=== PATIENT | male | born 1980 | race Caucasian/White ===

== ENCOUNTER → 2019-03-03 | Outpatient (CLI) | payer BC ==
--- NOTE | 2019-03-03 16:16 | XR ---
EXAMINATION TYPE: XR chest 2V DATE OF EXAM: 03/03/2019 COMPARISON: NONE HISTORY: Cough TECHNIQUE: Frontal and lateral views of the chest are obtained. FINDINGS: There is no focal air space opacity, pleural effusion, or pneumothorax seen. The cardiac silhouette size is within normal limits. Bronchial wall thickening noted. The osseous structures are intact. IMPRESSION: Correlate for bronchitis, reactive airways disease. Follow-up as indicated.
== END | disposition home or self-care (01) ==
LOC: RADXRYALE 14:46
PROVIDERS: ATTEND Physician Assistant Medical
DX: R05 Cough (principal)
CPT/HCPCS: 71046

== ENCOUNTER → 2019-04-28 | Outpatient (CLI) | payer BC ==
--- NOTE | 2019-04-28 14:02 | EST ---
EXERCISE STRESS AGE: 39 SEX: M HT: 6'1" WT: 200 PROTOCOL: Kwame Stress Test STAGE: IV DURATION OF EXERCISE: 11:00 HEART RATE REST: 92 BLOOD PRESSURE REST: 143/91 MAXIMUM HEART RATE ACHIEVED: 171 MAXIMUM BLOOD PRESSURE: 185/86 85% MPHR: 156 100% MPHR: 183 METS: 12.1 INDICATIONS: Chest pain. CLINICAL INFORMATION: STRESS DATA: Heart rate 92, blood pressure is 143/91 mmHg. Baseline EKG showed sinus mechanism. The patient exercised on the treadmill according to Kwame protocol for a total of 11 minutes and achieved 12.1 METS with max heart rate was 171, which is about 93% of maximum predicted heart rate. Maximum blood pressure was 185/86 mmHg. Clinically, the patient did not have any symptoms of chest pain or discomfort and the EKG did not show any significant ST or T-wave abnormalities concerning for ischemia. CONCLUSION: 1. Excellent exercise tolerance. 2. Normal EKG in response to exercise. 3. Essentially normal exercise treadmill stress test for the patient. MMODL / IJN: [id number] /
== END | disposition home or self-care (01) ==
LOC: RADNMMAIN 08:33
PROVIDERS: ATTEND Family Medicine
DX: I10 Essential (primary) hypertension (principal); R07.9 Chest pain, unspecified; F17.210 Nicotine dependence, cigarettes, uncomplicated
CPT/HCPCS: 93017

== ENCOUNTER → 2020-03-08 | Outpatient (CLI) | payer BC ==
--- NOTE | 2020-03-08 13:13 | US ---
EXAMINATION TYPE: US abdomen complete DATE OF EXAM: 03/08/2020 COMPARISON: NONE CLINICAL HISTORY: R10.811 right upper quad tenderness. RUQ Pain at site of 2 palpable areas x 1 year EXAM MEASUREMENTS: Liver Length: 19.4 cm Gallbladder Wall: 0.3 cm CBD: 0.5 cm Spleen: 13.7 cm Right Kidney: 12.3 x 4.6 x 6.0 cm Left Kidney: 13.5 x 5.5 x 5.3 cm Pancreas: wnl as visualized Liver: Increased attenuation, decreased visualization of vessels suggestive of fatty infiltrate; Enl arged size; 2 isoechoic areas seen adjacent to gallbladder 4.1 x 3.9 x 4.2 cm and 6.4 x 5.9 x 4.3 cm question masses versus lobular liver tissue. Consider MRI liver for additional evaluation. Gallbladder: No stones seen Evidence for sonographic Gutierrez's sign: No CBD: wnl Spleen: Size slightly enlarged Right Kidney: No hydronephrosis or masses seen Left Kidney: No hydronephrosis or masses seen Upper IVC: wnl Abd Aorta: wnl as visualized, mid and distal partially obscured At area of patients palpable area is a small cystic area 0.3 x 0.2 x 0.3 cm no abdominal wall hernia at these levels are evident. Thick walled abscess is not identified. Findings are nonspecific. IMPRESSION: 1. Hepatomegaly with hypoechoic areas are within the liver. Recommend contrast MRI liver for addition al evaluation. 2. Mild splenomegaly. 3. Palpable regions within the subcutaneous tissue anterior to the abdominal wall are hypoechoic and nonspecific.
== END | disposition home or self-care (01) ==
LOC: RADUSWWP 07:58
PROVIDERS: ATTEND Family Medicine
DX: R16.2 Hepatomegaly with splenomegaly, not elsewhere classified (principal); R93.2 Abnormal findings on diagnostic imaging of liver and biliary tract
CPT/HCPCS: 76700

== ENCOUNTER → 2020-07-26 | Outpatient (CLI) | payer BC ==
[2020-07-26 20:39] LABS: INR 1.39 (0.90-1.11); Prothrombin Time 14.8 sec (9.9-11.9)
[2020-07-27 00:26] LABS: Basophils # (A) 0.07 X 10*3/uL (0.00-0.10); Basophils % (A) 0.9 %; Eosinophils # (A) 0.14 X 10*3/uL (0.04-0.35); Eosinophils % (A) 1.8 %; HCT 42.8 % (39.6-50.0); HGB 14.4 g/dL (13.0-17.0); Lymphocytes # (A) 2.01 X 10*3/uL (0.90-5.00); Lymphocytes % (A) 25.1 %; MCH 34.9 pg (27.0-32.0); MCHC 33.6 g/dL (32.0-37.0); MCV 103.6 fL (80.0-97.0); Mean Platelet Volume 11.9 fL (9.5-12.2); Monocytes % (A) 8.8 %; Neutrophils # (A) 5.05 X 10*3/uL (1.80-7.70); RBC 4.13 X 10*6/uL (4.40-5.60); RDW 15.6 % (11.5-14.5)
[2020-07-27 02:27] LABS: % Iron Saturation 86.89 (15.00-50.00); African American GFR (CKD) 131.3 (60.0-200.0); Albumin 3.4 g/dL (3.80-4.90); Albumin/Globulin Ratio 0.71 (1.60-3.17); Anion Gap 13.3 mmol/L (4.00-12.00); Calcium 9.2 mg/dL (8.7-10.3); Carbon Dioxide 18.7 mmol/L (21.6-31.8); Ferritin 328.4 ng/mL (22.0-322.0); Globulin 4.8 g/dL (1.6-3.3); Non-African American GFR(CKD) 113.3 (60.0-200.0); Potassium 4.1 mmol/L (3.5-5.5); Total Bilirubin 7.8 mg/dL (0.2-1.2); Total Protein 8.2 g/dL (6.2-8.2)
[2020-07-27 06:42] LABS: Protein, Total 8.1 g/dL (6.2-8.2)
[2020-07-27 06:47] LABS: Alpha Fetoprotein, Tumor Mkr 3.2 ng/mL (0.0-7.9)
[2020-07-27 12:18] LABS: Ceruloplasmin 30.3 mg/dL (20.0-60.0)
[2020-07-27 13:15] LABS: Hepatitis A Antibody IgM Non-Reactive (Non-Reactive); Hepatitis B Core IgM Non-Reactive (Non-Reactive); Hepatitis B Surface Antigen Non-Reactive (Non-Reactive); Hepatitis C IgG Antibody Non-Reactive (Non-Reactive)
[2020-07-31 12:30] LABS: Albumin 3.18 g/dL (3.80-4.90); Gamma Globulin 2.78 g/dL (0.70-1.50)
[2020-08-02 16:56] LABS: ANA Pattern Speckled
== END | disposition home or self-care (01) ==
LOC: LABWHC1 11:29
PROVIDERS: ATTEND Nurse Practitioner
DX: K92.1 Melena (principal); R93.2 Abnormal findings on diagnostic imaging of liver and biliary tract; R74.01 Elevation of levels of liver transaminase levels
CPT/HCPCS: 36415; 80053; 80074; 82103; 82105; 82390; 82728; 83516; 83540; 83550; 84165; 85025; 85610; 86038; 86039; 86376

== ENCOUNTER → 2020-08-11 | Outpatient (CLI) | payer BC ==
--- NOTE | 2020-08-12 10:32 | MR ---
MRI liver. HISTORY: Liver masses identified abdominal ultrasound dated 03/08/2020. COMPARISON: None. TECHNIQUE: Multiecho multiplanar images the abdomen were obtained. Liver protocol was utilized with p re and postcontrast IV contrast imaging and delayed imaging as well as in and out of phase imaging. FINDINGS: There are 3 well-circumscribed masses adjacent to the gallbladder one measuring 5.7 cm, another measu ring 4.1 cm and a third measuring 3.4 cm. There are well-circumscribed. They demonstrate mild diffuse enhancement on the early arterial phase images and rapid washout of contrast on the delayed images. There is no calcification or fat detected within the masses. The appear benign based on morphology bu t are not characteristic of benign masses such as hemangioma,, fibronodular hyperplasia or adenoma on T1, T2, diffusion-weighted images in post contrast images. Biopsy is recommended to exclude malignan cy. The remainder the abdomen is unremarkable. The bowel loops are normal in caliber. There is no free intraperitoneal air or fluid. The kidneys are normal in size without hydronephrosis. The abdominal aorta is normal caliber. IMPRESSION: Multiple intrahepatic masses as described above. Etiology indeterminate. Biopsy should be considered to exclude malignancy.
== END | disposition home or self-care (01) ==
LOC: RADMRIMAIN 16:43
PROVIDERS: ATTEND Nurse Practitioner
DX: R16.0 Hepatomegaly, not elsewhere classified (principal)
CPT/HCPCS: 74183; A9585

== ENCOUNTER → 2020-08-22 | Outpatient (CLI) | payer BC ==
[2020-08-22 23:42] LABS: INR 1.46 (0.90-1.11); Prothrombin Time 15.5 sec (9.9-11.9)
[2020-08-23 00:55] LABS: Basophils # (A) 0.07 X 10*3/uL (0.00-0.10); Basophils % (A) 1.2 %; Eosinophils # (A) 0.06 X 10*3/uL (0.04-0.35); HCT 38.2 % (39.6-50.0); HGB 13.2 g/dL (13.0-17.0); Lymphocytes # (A) 1.28 X 10*3/uL (0.90-5.00); Lymphocytes % (A) 21.7 %; MCH 34.7 pg (27.0-32.0); MCHC 34.6 g/dL (32.0-37.0); MCV 100.5 fL (80.0-97.0); Macrocytosis (M) 2+; Monocytes # (A) 0.65 X 10*3/uL (0.20-1.00); Neutrophils # (A) 3.82 X 10*3/uL (1.80-7.70); Neutrophils % (A) 64.9 %; Platelet Count 22 X 10*3/uL (140-440); RDW 17.2 % (11.5-14.5); WBC 5.89 X 10*3/uL (4.50-10.00)
[2020-08-23 07:14] LABS: Albumin 3.3 g/dL (3.80-4.90); Albumin/Globulin Ratio 0.77 (1.60-3.17); Bilirubin, Conjugated 4.3 mg/dL (0.20-0.40); Bilirubin,Unconjugated 2.7 mg/dL; Globulin 4.3 g/dL (1.6-3.3); Total Protein 7.6 g/dL (6.2-8.2)
== END | disposition home or self-care (01) ==
LOC: LABWHC1 15:47
PROVIDERS: ATTEND Nurse Practitioner
DX: R16.0 Hepatomegaly, not elsewhere classified (principal)
CPT/HCPCS: 36415; 80076; 85025; 85610

== ENCOUNTER 2020-08-25 10:08 | Day surgery (SDC) | payer BC ==
[2020-08-22 15:19] VITALS: BMI 24.4
[~2020-08-25 10:08] MED LIST: LACTATED RINGERS 1,000 ML IV SCH; LIDOCAINE 1% (10MG/ML) FOR IV START INTRADERMA PRN
[2020-08-25 10:31] VITALS: RESP 17; TEMP 97.9
[2020-08-25 11:29] LABS: Anisocytosis Slight; Basophils # (A) 0.1 k/uL (0-0.2); Basophils % (A) 1 %; Eosinophils # (A) 0.2 k/uL (0-0.7); Eosinophils % (A) 3 %; HCT 46.7 % (39.0-53.0); HGB 15.2 gm/dL (13.0-17.5); Lymphocytes # (A) 1.9 k/uL (1.0-4.8); Lymphocytes % (A) 29 %; MCH 34.6 pg (25.0-35.0); MCHC 32.5 g/dL (31.0-37.0); MCV 106.3 fL (80.0-100.0); Macrocytosis Marked; Monocytes # (A) 0.5 k/uL (0-1.0); Monocytes % (A) 7 %; Neutrophils # (A) 3.8 k/uL (1.3-7.7); Neutrophils % (A) 58 %; RDW 16.3 % (11.5-15.5); WBC 6.6 k/uL (3.8-10.6)
[2020-08-25 11:32] LABS: Platelet Count 54 k/uL (150-450)
[2020-08-25] MEDS ORDERED: LIDOCAINE 1% INJ 10MG/ML (20 ML MDV) ONE (12:29)
[2020-08-25] MEDS ORDERED: PROPOFOL 10 MG/ML 20 ML VIAL IV ONE (12:29)
--- NOTE | 2020-08-25 12:50 | P.PCN ---
Date of Procedure: 08/25/20 Procedure(s) Performed: Brief history: Patient is a pleasant 40-year-old white male scheduled for an elective upper endoscopy as well as colonoscopy as a part of evaluation of anemia and intermittent dark colored stools and abdominal pain associated with progressive weight loss of 20 pounds the last few months duration. Recent MRI of the abdomen did show multiple lesions in the liver of uncertain etiology. Procedure performed: Esophagogastroduodenoscopy Colonoscopy Preoperative diagnosis: Melena Anemia/change in bowel habits Anesthesia: MAC Procedure: After informed consent was obtained from the patient was brought into the endoscopy unit and IV sedation was administered by anesthesia under continuous monitoring. Initially upper endoscopy was done. The Olympus GF 160 video endoscope was inserted inserted into the mouth and esophagus intubated without any difficulty and was gradually advanced into the stomach and duodenum and carefully examined. The bulb and second part of the duodenum appeared normal. The scope was then withdrawn into the stomach adequately insufflated with air an d upon careful examination the antrum and body, cardia and fundus is diffuse erythema with congestion appearing mucosa consistent with severe portal hypertensive gastropathy. No active bleeding noted.. The scope was then withdrawn into the esophagus. The GE junction was located at 40 cm to the incisors. It appeared regular with no erythema erosions or ulcerations. There were small distal esophageal varices noted. Rest of the esophagus appeared normal. Patient tolerated the procedure well. At this time the patient continued to remain sedation. Initial digital rectal examination was normal. Olympus CF 160 video colonoscope was then inserted into the rectum and gradually advanced to the cecum without any difficulty. Careful examination was performed as the scope was gradually being withdrawn. The prep was poor in the right colon as well as the cecum. Irrigation was performed despite which adequate visualization was not possible especially in the cecum. The ascending colon, transverse colon, descending colon, sigmoid colon and rectum appeared normal. Retroflexion was performed in the rectum and no lesions were noted. Patient tolerated the procedure well. Impression: 1. Upper endoscopy revealed severe portal hypertensive gastropathy and small esophageal varices 2. Colonoscopy was within normal limits with no evidence of colitis or colorectal neoplasia Recommendations: Findings of this examination were discussed with the patient as well as his family. He'll be seen in office in one to 2 weeks.
[2020-08-25 13:11] VITALS: BP 136/85; PULSE 82
== END 2020-08-25 13:20 | disposition home or self-care (01) ==
LOC: ORWHC2ENDO 10:08
PROVIDERS: ATTEND Internal Medicine Gastroenterology
DX: I85.00 Esophageal varices without bleeding (principal); D64.9 Anemia, unspecified; K92.1 Melena; D69.6 Thrombocytopenia, unspecified; R16.0 Hepatomegaly, not elsewhere classified; Z79.899 Other long term (current) drug therapy
CPT/HCPCS: 85025; 45378; 43235; J2001; J2704

== ENCOUNTER 2020-08-31 08:07 | Day surgery (SDC) | payer BC ==
[2020-08-31] MEDS ORDERED: ALPRAZolam 0.5 MG TAB PO PRN (08:15)
[2020-08-31 08:58] LABS: Mean Platelet Volume 9.5
[2020-08-31 09:02] LABS: INR 1.6 (<1.2); Prothrombin Time 15.7 sec (9.0-12.0)
[2020-08-31 09:03] LABS: Platelet Count 69 k/uL (150-450)
[2020-08-31] MEDS: HYDROmorphone 0.5 MG/0.5 ML SYRINGE IVP PRN ×2 (11:30→12:39)
[2020-08-31 12:47] VITALS: RESP 16
--- NOTE | 2020-08-31 13:15 | US ---
EXAMINATION TYPE: US biopsy liver DATE OF EXAM: 08/31/2020 HISTORY: Liver mass. Correlation to MR liver 08/11/2020 FINDINGS: Maximal barrier technique was utilized. Hand hygiene achieved with soap and water and alco hol-based hand rub. The skin overlying a suitable path to the patient's mass in the right lobe of marylou er was localized with ultrasound and the overlying skin prepped and draped. Ultrasound was utilized with sterile technique. Lidocaine was used for local anesthesia. A skin marty was made with a scalpe l. An 18-gauge needle was advanced under direct ultrasound guidance and core specimen obtained of th e mass. Single pass was made. Specimen submitted in formalin to Pathology. Following the procedure, hemostasis achieved and the patient is discharged in stable condition without complication. IMPRESSION:STATUS POST ULTRASOUND GUIDED CORE BIOPSY OF liver MASS, PATHOLOGY IS PENDING. THIS PROCE DURE IS PERFORMED BY THE UNDERSIGNED.
[2020-08-31 13:37] VITALS: TEMP 97.8
[2020-08-31 16:35] VITALS: BP 114/58; PULSE 78
== END 2020-08-31 16:15 | disposition home or self-care (01) ==
LOC: RADPROMAIN 08:07
PROVIDERS: ATTEND Internal Medicine Gastroenterology
DX: R16.0 Hepatomegaly, not elsewhere classified (principal)
CPT/HCPCS: 86900; 86901; 85049; 85610; 86850; 88313; 88342; 88307; 88341; 96372; 36415; 47000; 76942; P9035; P9059; J1170

== ENCOUNTER 2021-11-03 21:29 | Emergency (ER) | payer OTHER, BC ==
--- NOTE | 2021-11-03 21:40 | ED ---
Altered Mental Status HPI - General Source: EMS Mode of arrival: EMS Limitations: altered mental status - History of Present Illness MD Complaint: altered mental status, confusion Onset/Timin -: days(s) Severity: severe Consistency of Symptoms: getting worse Context: liver disease Associated Symptoms: denies other symptoms <Cecil Mueller - Last Filed: 11/04/21 08:03> <Francisco Russell - Last Filed: 11/04/21 16:52> - General Chief Complaint: Altered Mental Status Stated Complaint: Altered Mental Status Time Seen by Provider: 11/03/21 21:35 - History of Present Illness Initial Comments: Patient is 41-year-old man, reported to have end-stage liver disease, sent in from home for altered mental status. EMS states they were told this is been getting progressively worse over the course of the day. He did have some ground-level falls, they were told to falls over the past 24 hours. Patient is not able to give any history. (Cecil Mueller) - Related Data Home Medications Medication Instructions Recorded Confirmed Multivitamins, Thera [Multivitamin 1 tab PO DAILY 08/22/20 08/31/20 (formulary)] Omeprazole 40 mg PO DAILY 08/31/20 08/31/20 Allergies Allergy/AdvReac Type Severity Reaction Status Date / Time No Known Allergies Allergy Verified 08/31/20 08:50 Review of Systems ROS Other: All systems not noted in ROS Statement are negative. Limitations: ROS unobtainable due to patients medical condition <Cecil Mueller - Last Filed: 11/04/21 08:03> ROS Other: All systems not noted in ROS Statement are negative. <Francisco Russell - Last Filed: 11/04/21 16:52> ROS Statement: Those systems with pertinent positive or pertinent negative responses have been documented in the HPI. Past Medical History Past Medical History: Blood Disorder, GERD/Reflux, Liver Disease Additional Past Medical History / Comment(s): lipoma -liver/rib area, back pain, nose bleeds, gums bleeding History of Any Multi-Drug Resistant Organisms: None Reported Past Surgical History: Back Surgery Past Anesthesia/Blood Transfusion Reactions: No Reported Reaction Past Psychological History: No Psychological Hx Reported Smoking Status: Current every day smoker Past Alcohol Use History: Daily Past Drug Use History: Marijuana - Past Family History Father Family Medical History: No Reported History <Cecil Mueller - Last Filed: 11/04/21 08:03> General Exam Limitations: altered mental status General appearance: obtunded Head exam: Present: atraumatic, normocephalic Eye exam: Present: PERRL, EOMI, scleral icterus ENT exam: Present: mucous membranes dry Neck exam: Present: normal inspection, full ROM. Absent: tenderness Respiratory exam: Present: normal lung sounds bilaterally, rhonchi. Absent: respiratory distress, wheezes, rales, accessory muscle use, decreased breath sounds Cardiovascular Exam: Present: regular rate, normal rhythm, normal heart sounds. Absent: systolic murmur, diastolic murmur, rubs, gallop GI/Abdominal exam: Present: soft, distended. Absent: tenderness, guarding, rebound, rigid Extremities exam: Present: normal inspection, normal capillary refill, pedal edema. Absent: calf tenderness Back exam: Present: normal inspection Neurological exam: Present: altered. Absent: motor sensory deficit Skin exam: Present: warm, dry, intact, other (Jaundice). Absent: normal color, rash <Cecil Mueller - Last Filed: 11/04/21 08:03> Course Vital Signs 11/03/21 11/03/21 11/03/21 21:31 21:38 21:42 Temperature Pulse Rate 84 82 88 Respiratory 18 16 16 Rate Blood Pressure 93/51 143/61 122/46 O2 Sat by Pulse 100 100 Oximetry Fraction of Inspired Oxygen (FIO2) 11/03/21 11/03/21 11/03/21 22:00 23:17 23:45 Temperature Pulse Rate 85 80 70 Respiratory 16 16 16 Rate Blood Pressure 140/49 132/62 147/64 O2 Sat by Pulse 100 97 100 Oximetry Fraction of Inspired Oxygen (FIO2) 11/04/21 11/04/21 11/04/21 04:30 06:00 06:59 Temperature Pulse Rate 68 63 62 Respiratory 23 27 H 27 H Rate Blood Pressure 101/37 86/41 91/32 O2 Sat by Pulse 92 L 98 97 Oximetry Fraction of Inspired Oxygen (FIO2) 11/04/21 11/04/21 11/04/21 07:31 08:45 08:56 Temperature 91.8 F L 91.6 F L Pulse Rate 62 75 68 Respiratory 29 H 27 H 26 H Rate Blood Pressure 96/35 81/30 72/30 O2 Sat by Pulse 97 100 99 Oximetry Fraction of Inspired Oxygen (FIO2) 11/04/21 11/04/21 11/04/21 09:06 09:12 09:28 Temperature 91.4 F L 91.2 F L Pulse Rate 67 72 Respiratory 20 21 Rate Blood Pressure 74/33 100/44 O2 Sat by Pulse 97 99 Oximetry Fraction of 100 Inspired Oxygen (FIO2) 11/04/21 11/04/21 11/04/21 09:29 09:36 09:46 Temperature 90.9 F L 90.9 F L Pulse Rate 70 69 66 Respiratory 18 22 24 Rate Blood Pressure 92/43 88/44 98/44 O2 Sat by Pulse 90 L 91 L 91 L Oximetry Fraction of Inspired Oxygen (FIO2) 11/04/21 11/04/21 11/04/21 09:55 09:56 09:58 Temperature 90.7 F L 90.7 F L 90.7 F L Pulse Rate 58 L 55 L 55 L Respiratory 20 21 15 Rate Blood Pressure 87/33 83/36 84/32 O2 Sat by Pulse 99 100 100 Oximetry Fraction of Inspired Oxygen (FIO2) 11/04/21 10:13 Temperature 90.3 F L Pulse Rate 60 Respiratory 15 Rate Blood Pressure 95/40 O2 Sat by Pulse 100 Oximetry Fraction of Inspired Oxygen (FIO2) Procedures - Central Line Placement Left Femoral Consent Obtained: emergent situation Patient Placed on Monitor/Pulse Ox: Yes Prep: mask, gown, gloves Central Line Prep: Chlorhexidine scrub, sterile drapes applied Local Anesthesia Used: Lidocaine 1% Amount of Anesthesia Used (mls): 5 Ultrasound Used for Placement: Yes Central Line Lumen Inserted: triple Central Line Position: good blood return, all ports aspirated, flushed, capped, sutured in place with nylon Dressing Applied: Tegaderm Patient Tolerated Procedure: well Complications: none - Intubation Sedative: Ketamine Mg Given: 200 Paralytic: Rocuronium Mg Given: 100 Laryngoscope: other (glidescope) Size: 4 ET Tube Size: 8 Tube Secured Depth (cm): 26 Tube Secured Location: lips Tube Placement Confirmation: visualized tube passing through cords, equal breath sounds bilaterally, confirmation by capnometry Patient Tolerated Procedure: well Intubation Complications: none <Francisco Russell - Last Filed: 11/04/21 16:52> - Intubation Additional Comments: No Active oropharyngeal bleed on intubation. (Francisco Russell) Medical Decision Making - Lab Data Result diagrams: 11/03/21 22:53 11/03/21 21:36 - EKG Data EKG shows normal: sinus rhythm, axis (Normal), intervals (Normal), QRS complexes (Normal) Rate: normal (Rate 78 bpm) Interpretation: nonspecific ST-T wave changes <Cecil Mueller - Last Filed: 11/04/21 08:03> - Lab Data Result diagrams: 11/04/21 08:47 11/04/21 08:40 - EKG Data -: EKG Interpreted by Me <Francisco Russell - Last Filed: 11/04/21 16:52> - Medical Decision Making This patient is a 41-year-old man brought by ambulance for altered mental status. Patient's has subsequently arrived and given additional history. From the history of their deftly appears to be worsening hepatic encephalopathy. This is confirmed by the lab tests. Patient's stated that he really had not fallen contrary to the EMS report were given. He did slump to the ground once but it was not a fall and there was no injury. I discussed the lab findings and that the patient would require admission for further treatment, the patient's requests that he go to [facility] where he is having all of his workup. He is in fact scheduled for MRI at one of their facilities. I discussed the case with the transfer team there and they will accept transfer to go to the MICU when they have a bed available. Patient had some mild hypoglycemia and this did respond to dextrose administration. The patient's blood pressures did trend somewhat down he was given fluid bolus and when they trended down again patient has blood transfusion ordered. (Cecil Mueller) Patient was signed out to me pending transfer. He is a 41-year-old male with known history of liver failure who presents emergency Department appearing to have hepatorenal syndrome. He has a history of blood loss anemia as well. Over the last few days has become more lethargic and altered. Last night he is not responding to questioning just staring off into space which prompted his to bring him to the emergency department for evaluation. Based on initial labs, did look like he was in hepatorenal failure. Was given a dose of Rocephin, a small amount of IV fluids, pain medications, and then transfer was arranged for [facility]. There is no indication on when a bed would be available. Upon my arrival, patient was becoming more hypotensive. Patient was relatively stable systolics from 90 to low 100s overnight but started becoming more hypotensive down into the 70s. At one point, patient did become bradycardic down into the 30s which responded to atropine as well as 2 g of calcium. Initial labs showed a potassium within normal limits, in addition to this hepatorenal failure. Patient had elevated bilirubin in the 20s. Blood catheter was placed and the patient has not made any urine overnight. Patient has a history of thrombocytopenia and has required transfusions in the past. I arr anged for 2 units of packed red blood cells as well as platelet transfusion. Patient remains a GCS of 4-5 at best. Patient remains intermittently hypotensive with resolved bradycardia. At this time, the decision is going to be made to intubate the patient. However due to his persistently low blood pressure in the 70s, central access will be obtained as well as Aleve for drip will be started. He'll be given a dose of Zosyn. We're pending a repeat labs at this time. I discussed this with the patient's was at bedside who is in agreement this plan. I spoke with [facility] ICU, Dr. Foster to update him of the patient's deterioration. As we have no GI service here, he was able to secure a bed in ICU urgently. Patient will be transferred as soon as patient is intubated, central line has been established. Intubation was successful. Central line was successful. Left femoral central line was placed. Please see additional notes for further information. Following intubation, patient's vital signs remained stable with systolic blood pressures anywhere from 85-100 systolic. Was started on Levaquin for drip during intubation. Saturations are 99% on the vent. Laboratory studies did return afterwards, and were remarkable for a macrocytic anemia with hemoglobin of 5.6 which is likely related to dilution and therefore we will continue with the transfusion. Did not receive blood prior to the repeat labs. Repeat electrolytes reveal a worsening anion gap acidosis likely secondary to lactic acid acidosis. Lactic acid is still pending at this time. Total bilirubin remains elevated. Patient's worsening renal function. Potassium was within normal limits. Patient does have a history of esophageal varices, as as there was a small amount of blood oozing from his mouth cannot rule this out at this time. No large amount of hematemesis. He does have a history of his gums oozing as well. He therefore will be empirically started on IV octreotide as well as IV Protonix in the event that his varices are acting up. We'll avoid and OG tube for NG tube at this time to avoid disrupting the varices as he is having no elis hematemesis. EKG was obtained following the bradycardic event, and revealed no acute process significant for ischemia.We'll avoid administering excessive fluids of the patient is not in any urine since arrival. Postintubation chest x-ray will be obtained. Patient be transferred and critical condition via ambulance ALS lights and sirens. I opted the patient's multiple times and she expressed understanding consented to therapies discussed above. She will ride with the patient to [facility]. Patient's post intubation chest x-ray revealed a slightly deep ET tube. Will be withdrawn 2 cm. (Francisco Russell) - Lab Data Lab Results 11/03/21 11/03/21 11/03/21 Range/Units 21:36 21:36 22:53 WBC 14.9 H (3.8-10.6) k/uL RBC 2.05 L (4.30-5.90) m/uL Hgb 7.4 L (13.0-17.5) gm/dL Hct 25.6 L (39.0-53.0) % MCV 124.6 H (80.0-100.0) fL MCH 35.3 H (25.0-35.0) pg MCHC 28.7 L (31.0-37.0) g/dL RDW 21.1 H (11.5-15.5) % Plt Count 79 L (150-450) k/uL MPV 13.5 Neutrophils % (Manual) 76 % Band Neuts % (Manual) 6 % Lymphocytes % (Manual) 9 % Monocytes % (Manual) 7 % Eosinophils % (Manual) 3 % Metamyelocytes % 1 % Neutrophils # (Manual) 12.20 H (1.3-7.7) k/uL Lymphocytes # (Manual) 1.34 (1.0-4.8) k/uL Monocytes # (Manual) 1.04 H (0-1.0) k/uL Eosinophils # (Manual) 0.45 (0-0.7) k/uL Metamyelocytes # (Man) 0.15 H (0) k/uL Nucleated RBCs 0 (0-0) /100 WBC Manual Slide Review Performed Toxic Vacuolation Present Polychromasia Present Hypochromasia Marked Poikilocytosis Slight Anisocytosis Moderate Macrocytosis Marked A Crenated Cell Present Rouleaux Fragmented RBCs Present PT (9.0-12.0) sec INR (<1.2) APTT (22.0-30.0) sec Sodium 127 L (137-145) mmol/L Potassium 3.9 (3.5-5.1) mmol/L Chloride 97 L (98-107) mmol/L Carbon Dioxide 10 L (22-30) mmol/L Anion Gap 20 mmol/L BUN 57 H (9-20) mg/dL Creatinine 6.67 H (0.66-1.25) mg/dL Est GFR (CKD-EPI)AfAm 11 (>60 ml/min/1.73 sqM) Est GFR (CKD-EPI)NonAf 10 (>60 ml/min/1.73 sqM) Glucose 85 (74-99) mg/dL POC Glucose (mg/dL) (70-110) mg/dL POC Glu Jalousies Installer ID Calcium 7.5 L (8.4-10.2) mg/dL Total Bilirubin 26.3 H* (0.2-1.3) mg/dL AST 103 H (17-59) U/L ALT 44 (4-49) U/L Alkaline Phosphatase 117 (38-126) U/L Ammonia (<30) umol/L Troponin I 0.012 (0.000-0.034) ng/mL Total Protein 7.2 (6.3-8.2) g/dL Albumin 2.3 L (3.5-5.0) g/dL Serum Alcohol <10 mg/dL Coronavirus (PCR) (Not Detectd) Blood Type Blood Type Recheck Bld Type Recheck Status Antibody Screen Crossmatch Transfuse Platelets Spec Expiration Date 11/03/21 11/04/21 11/04/21 Range/Units 22:53 01:14 02:09 WBC (3.8-10.6) k/uL RBC (4.30-5.90) m/uL Hgb (13.0-17.5) gm/dL Hct (39.0-53.0) % MCV (80.0-100.0) fL MCH (25.0-35.0) pg MCHC (31.0-37.0) g/dL RDW (11.5-15.5) % Plt Count (150-450) k/uL MPV Neutrophils % (Manual) % Band Neuts % (Manual) % Lymphocytes % (Manual) % Monocytes % (Manual) % Eosinophils % (Manual) % Metamyelocytes % % Neutrophils # (Manual) (1.3-7.7) k/uL Lymphocytes # (Manual) (1.0-4.8) k/uL Monocytes # (Manual) (0-1.0) k/uL Eosinophils # (Manual) (0-0.7) k/uL Metamyelocytes # (Man) (0) k/uL Nucleated RBCs (0-0) /100 WBC Manual Slide Review Toxic Vacuolation Polychromasia Hypochromasia Poikilocytosis Anisocytosis Macrocytosis Crenated Cell Rouleaux Fragmented RBCs PT 33.1 H (9.0-12.0) sec INR 3.3 H (<1.2) APTT 64.8 H (22.0-30.0) sec Sodium (137-145) mmol/L Potassium (3.5-5.1) mmol/L Chloride (98-107) mmol/L Carbon Dioxide (22-30) mmol/L Anion Gap mmol/L BUN (9-20) mg/dL Creatinine (0.66-1.25) mg/dL Est GFR (CKD-EPI)AfAm (>60 ml/min/1.73 sqM) Est GFR (CKD-EPI)NonAf (>60 ml/min/1.73 sqM) Glucose (74-99) mg/dL POC Glucose (mg/dL) (70-110) mg/dL POC Glu Jalousies Installer ID Calcium (8.4-10.2) mg/dL Total Bilirubin (0.2-1.3) mg/dL AST (17-59) U/L ALT (4-49) U/L Alkaline Phosphatase (38-126) U/L Ammonia 424 H (<30) umol/L Troponin I (0.000-0.034) ng/mL Total Protein (6.3-8.2) g/dL Albumin (3.5-5.0) g/dL Serum Alcohol mg/dL Coronavirus (PCR) Not Detected (Not Detectd) Blood Type Blood Type Recheck Bld Type Recheck Status Antibody Screen Crossmatch Transfuse Platelets Spec Expiration Date 11/04/21 11/04/21 11/04/21 Range/Units 05:08 05:46 07:16 WBC (3.8-10.6) k/uL RBC (4.30-5.90) m/uL Hgb (13.0-17.5) gm/dL Hct (39.0-53.0) % MCV (80.0-100.0) fL MCH (25.0-35.0) pg MCHC (31.0-37.0) g/dL RDW (11.5-15.5) % Plt Count (150-450) k/uL MPV Neutrophils % (Manual) % Band Neuts % (Manual) % Lymphocytes % (Manual) % Monocytes % (Manual) % Eosinophils % (Manual) % Metamyelocytes % % Neutrophils # (Manual) (1.3-7.7) k/uL Lymphocytes # (Manual) (1.0-4.8) k/uL Monocytes # (Manual) (0-1.0) k/uL Eosinophils # (Manual) (0-0.7) k/uL Metamyelocytes # (Man) (0) k/uL Nucleated RBCs (0-0) /100 WBC Manual Slide Review Toxic Vacuolation Polychromasia Hypochromasia Poikilocytosis Anisocytosis Macrocytosis Crenated Cell Rouleaux Fragmented RBCs PT (9.0-12.0) sec INR (<1.2) APTT (22.0-30.0) sec Sodium (137-145) mmol/L Potassium (3.5-5.1) mmol/L Chloride (98-107) mmol/L Carbon Dioxide (22-30) mmol/L Anion Gap mmol/L BUN (9-20) mg/dL Creatinine (0.66-1.25) mg/dL Est GFR (CKD-EPI)AfAm (>60 ml/min/1.73 sqM) Est GFR (CKD-EPI)NonAf (>60 ml/min/1.73 sqM) Glucose (74-99) mg/dL POC Glucose (mg/dL) 69 L 127 H 88 (70-110) mg/dL POC Glu Jalousies Installer [employer], [employer] mccracken Calcium (8.4-10.2) mg/dL Total Bilirubin (0.2-1.3) mg/dL AST (17-59) U/L ALT (4-49) U/L Alkaline Phosphatase (38-126) U/L Ammonia (<30) umol/L Troponin I (0.000-0.034) ng/mL Total Protein (6.3-8.2) g/dL Albumin (3.5-5.0) g/dL Serum Alcohol mg/dL Coronavirus (PCR) (Not Detectd) Blood Type Blood Type Recheck Bld Type Recheck Status Antibody Screen Crossmatch Transfuse Platelets Spec Expiration Date 11/04/21 11/04/21 11/04/21 Range/Units 07:28 07:47 08:21 WBC (3.8-10.6) k/uL RBC (4.30-5.90) m/uL Hgb (13.0-17.5) gm/dL Hct (39.0-53.0) % MCV (80.0-100.0) fL MCH (25.0-35.0) pg MCHC (31.0-37.0) g/dL RDW (11.5-15.5) % Plt Count (150-450) k/uL MPV Neutrophils % (Manual) % Band Neuts % (Manual) % Lymphocytes % (Manual) % Monocytes % (Manual) % Eosinophils % (Manual) % Metamyelocytes % % Neutrophils # (Manual) (1.3-7.7) k/uL Lymphocytes # (Manual) (1.0-4.8) k/uL Monocytes # (Manual) (0-1.0) k/uL Eosinophils # (Manual) (0-0.7) k/uL Metamyelocytes # (Man) (0) k/uL Nucleated RBCs (0-0) /100 WBC Manual Slide Review Toxic Vacuolation Polychromasia Hypochromasia Poikilocytosis Anisocytosis Macrocytosis Crenated Cell Rouleaux Fragmented RBCs PT (9.0-12.0) sec INR (<1.2) APTT (22.0-30.0) sec Sodium (137-145) mmol/L Potassium (3.5-5.1) mmol/L Chloride (98-107) mmol/L Carbon Dioxide (22-30) mmol/L Anion Gap mmol/L BUN (9-20) mg/dL Creatinine (0.66-1.25) mg/dL Est GFR (CKD-EPI)AfAm (>60 ml/min/1.73 sqM) Est GFR (CKD-EPI)NonAf (>60 ml/min/1.73 sqM) Glucose (74-99) mg/dL POC Glucose (mg/dL) 168 H 141 H (70-110) mg/dL POC Glu Jalousies Installer ID Meryl Go HarishDustin [email or web address] Calcium (8.4-10.2) mg/dL Total Bilirubin (0.2-1.3) mg/dL AST (17-59) U/L ALT (4-49) U/L Alkaline Phosphatase (38-126) U/L Ammonia (<30) umol/L Troponin I (0.000-0.034) ng/mL Total Protein (6.3-8.2) g/dL Albumin (3.5-5.0) g/dL Serum Alcohol mg/dL Coronavirus (PCR) (Not Detectd) Blood Type A Positive Blood Type Recheck A Pos Bld Type Recheck Status No Antibody Screen NEGATIVE Crossmatch See Detail Transfuse Platelets Spec Expiration Date 11/07/2021 - 233411/04/21 11/04/21 11/04/21 Range/Units 08:40 08:40 08:47 WBC 13.0 H (3.8-10.6) k/uL RBC 1.59 L (4.30-5.90) m/uL Hgb 5.6 L* D (13.0-17.5) gm/dL Hct 20.6 L (39.0-53.0) % MCV 129.8 H D (80.0-100.0) fL MCH 34.9 (25.0-35.0) pg MCHC 27.3 L (31.0-37.0) g/dL RDW 20.9 H (11.5-15.5) % Plt Count 73 L (150-450) k/uL MPV 10.3 Neutrophils % (Manual) 83 % Band Neuts % (Manual) 1 % Lymphocytes % (Manual) 10 % Monocytes % (Manual) 5 % Eosinophils % (Manual) 1 % Metamyelocytes % % Neutrophils # (Manual) 10.90 H (1.3-7.7) k/uL Lymphocytes # (Manual) 1.30 (1.0-4.8) k/uL Monocytes # (Manual) 0.65 (0-1.0) k/uL Eosinophils # (Manual) 0.13 (0-0.7) k/uL Metamyelocytes # (Man) (0) k/uL Nucleated RBCs 0 (0-0) /100 WBC Manual Slide Review Performed Toxic Vacuolation Polychromasia Present Hypochromasia Marked Poikilocytosis Slight Anisocytosis Moderate Macrocytosis Marked A Crenated Cell Present Rouleaux Present Fragmented RBCs Present PT (9.0-12.0) sec INR (<1.2) APTT (22.0-30.0) sec Sodium 129 L (137-145) mmol/L Potassium 4.6 (3.5-5.1) mmol/L Chloride 101 (98-107) mmol/L Carbon Dioxide 8 L* (22-30) mmol/L Anion Gap 20 mmol/L BUN 57 H (9-20) mg/dL Creatinine 7.40 H* (0.66-1.25) mg/dL Est GFR (CKD-EPI)AfAm 10 (>60 ml/min/1.73 sqM) Est GFR (CKD-EPI)NonAf 8 (>60 ml/min/1.73 sqM) Glucose 114 H (74-99) mg/dL POC Glucose (mg/dL) (70-110) mg/dL POC Glu Jalousies Installer ID Calcium 9.7 (8.4-10.2) mg/dL Total Bilirubin 21.6 H* (0.2-1.3) mg/dL AST 120 H (17-59) U/L ALT 39 (4-49) U/L Alkaline Phosphatase 90 (38-126) U/L Ammonia 547 H (<30) umol/L Troponin I (0.000-0.034) ng/mL Total Protein 5.9 L (6.3-8.2) g/dL Albumin 1.8 L (3.5-5.0) g/dL Serum Alcohol mg/dL Coronavirus (PCR) (Not Detectd) Blood Type Blood Type Recheck Bld Type Recheck Status Antibody Screen Crossmatch Transfuse Platelets Spec Expiration Date 11/04/21 Range/Units 09:12 WBC (3.8-10.6) k/uL RBC (4.30-5.90) m/uL Hgb (13.0-17.5) gm/dL Hct (39.0-53.0) % MCV (80.0-100.0) fL MCH (25.0-35.0) pg MCHC (31.0-37.0) g/dL RDW (11.5-15.5) % Plt Count (150-450) k/uL MPV Neutrophils % (Manual) % Band Neuts % (Manual) % Lymphocytes % (Manual) % Monocytes % (Manual) % Eosinophils % (Manual) % Metamyelocytes % % Neutrophils # (Manual) (1.3-7.7) k/uL Lymphocytes # (Manual) (1.0-4.8) k/uL Monocytes # (Manual) (0-1.0) k/uL Eosinophils # (Manual) (0-0.7) k/uL Metamyelocytes # (Man) (0) k/uL Nucleated RBCs (0-0) /100 WBC Manual Slide Review Toxic Vacuolation Polychromasia Hypochromasia Poikilocytosis Anisocytosis Macrocytosis Crenated Cell Rouleaux Fragmented RBCs PT (9.0-12.0) sec INR (<1.2) APTT (22.0-30.0) sec Sodium (137-145) mmol/L Potassium (3.5-5.1) mmol/L Chloride (98-107) mmol/L Carbon Dioxide (22-30) mmol/L Anion Gap mmol/L BUN (9-20) mg/dL Creatinine (0.66-1.25) mg/dL Est GFR (CKD-EPI)AfAm (>60 ml/min/1.73 sqM) Est GFR (CKD-EPI)NonAf (>60 ml/min/1.73 sqM) Glucose (74-99) mg/dL POC Glucose (mg/dL) (70-110) mg/dL POC Glu Jalousies Installer ID Calcium (8.4-10.2) mg/dL Total Bilirubin (0.2-1.3) mg/dL AST (17-59) U/L ALT (4-49) U/L Alkaline Phosphatase (38-126) U/L Ammonia (<30) umol/L Troponin I (0.000-0.034) ng/mL Total Protein (6.3-8.2) g/dL Albumin (3.5-5.0) g/dL Serum Alcohol mg/dL Coronavirus (PCR) (Not Detectd) Blood Type Blood Type Recheck Bld Type Recheck Status Antibody Screen Crossmatch Transfuse Platelets 11/04/21 Spec Expiration Date - EKG Data EKG Comments: 12-lead Electrocardiogram Interpretation Note EKG was reviewed and interpreted by myself. 12-lead ECG performed at 0830 is interpreted by me as revealing normal sinus rhythm at a rate of 80 beats per minute. Bradford is normal. HI interval is 160 ms, QRS durations 127 ms, QTc is 333 ms.. There were no ST or T wave abnormalities to suggest myocardial ischemia or injury. R wave progression across the precordium was satisfactory. By my interpretation this EKG is non-diagnostic for acute ischemia. No hyperkalemia changes. (Francisco Russell) Critical Care Time Critical Care Time: Yes (40 minutes) <Cecil Mueller - Last Filed: 11/04/21 08:03> Disposition <Cecil Mueller - Last Filed: 11/04/21 08:03> Time of Disposition: 10:10 - Out of Hospital Transfer - Req. Specs Out of Hospital Transfer - Requested Specifics: Other Emergency Center (Transfer to [facility] for escalation of care.) <Francisco Russell - Last Filed: 11/04/21 16:52> Clinical Impression: Hepatorenal failure, Hypotension, Anemia, Bradycardia, History of esophageal varices, Sepsis Disposition: OTHER INSTITUTION NOT DEFINED Condition: Critical Referrals: None,Stated [Primary Care Provider] - 1-2 days
[2021-11-03 22:02] LABS: AST 103 U/L (17-59); African American GFR (CKD) 11 (>60 ml/min/1.73 sqM); Albumin 2.3 g/dL (3.5-5.0); Alcohol <10 mg/dL; Alkaline Phosphatase 117 U/L (38-126); Anion Gap 20 mmol/L; Blood Urea Nitrogen 57 mg/dL (9-20); Calcium 7.5 mg/dL (8.4-10.2); Carbon Dioxide 10 mmol/L (22-30); Chloride 97 mmol/L (98-107); Glucose 85 mg/dL (74-99); Non-African American GFR(CKD) 10 (>60 ml/min/1.73 sqM); Potassium 3.9 mmol/L (3.5-5.1); Sodium 127 mmol/L (137-145); Total Protein 7.2 g/dL (6.3-8.2)
[2021-11-03 22:28] LABS: Total Bilirubin 26.3 mg/dL (0.2-1.3)
--- NOTE | 2021-11-03 22:41 | CT ---
EXAMINATION TYPE: CT brain wo con DATE OF EXAM: 11/03/2021 COMPARISON: None HISTORY: AMS CT DLP: 1098.4 mGycm Automated exposure control for dose reduction was used. Images of the brain obtained with no contrast. There is minimal cerebral cortical atrophy. There is no mass effect or midline shift. No sign of intr acranial hemorrhage. Calvarium is intact. No evidence of cerebral edema. There is normal aeration of the mastoid sinuses. Sella turcica appears normal. IMPRESSION: Minimal atrophy. No acute intracranial abnormality.
[2021-11-03 23:16] LABS: ALT 44 U/L (4-49)
--- NOTE | 2021-11-03 23:34 | XR ---
EXAMINATION TYPE: XR chest 1V DATE OF EXAM: 11/03/2021 COMPARISON: 03/03/2019 HISTORY: Altered mental status TECHNIQUE: FINDINGS: Heart is normal. Lungs are clear of infiltrate. No heart failure. There are chest leads. Co stophrenic angles are clear. Bony thorax is intact. IMPRESSION: No active cardiopulmonary disease. Normal heart. No change.
[2021-11-03 23:40] LABS: Anisocytosis Moderate; HCT 25.6 % (39.0-53.0); Hypochromasia Marked; MCV 124.6 fL (80.0-100.0); Macrocytosis Marked; Mean Platelet Volume 13.5; Poikilocytosis Slight; RBC 2.05 m/uL (4.30-5.90); RDW 21.1 % (11.5-15.5); WBC 14.9 k/uL (3.8-10.6)
[2021-11-03 23:46] LABS: HGB 7.4 gm/dL (13.0-17.5)
[2021-11-03 23:47] LABS: MCH 35.3 pg (25.0-35.0); MCHC 28.7 g/dL (31.0-37.0)
[2021-11-03] MEDS ORDERED: SODIUM CHLORIDE 0.9% 500 ML 500 ML IV STA (23:54)
[2021-11-03] MEDS ORDERED: LORazepam 2 MG/ML INJ IV STA (23:54)
[2021-11-03] MEDS ORDERED: MORPHINE SULFATE 4 MG/ML SYRINGE IV STA (23:54)
[2021-11-04 00:04] LABS: INR 3.3 (<1.2); Prothrombin Time 33.1 sec (9.0-12.0)
[2021-11-04 00:15] LABS: Partial Thromboplastin Time 64.8 sec (22.0-30.0)
[2021-11-04 00:55] LABS: Band Neutrophils % 6 %; Eosinophils # (M) 0.45 k/uL (0-0.7); Lymphocytes # (M) 1.34 k/uL (1.0-4.8); Metamyelocytes # (M) 0.15 k/uL (0); Metamyelocytes % 1 %; Monocytes # (M) 1.04 k/uL (0-1.0); Neutrophils % (M) 76 %; Nucleated Red Blood Cells 0 /100 WBC (0-0); Total Cells Counted 200
[2021-11-04 00:57] LABS: Crenated RBC Present; Polychromasia Present; RBC Fragments Present
[2021-11-04 00:59] LABS: Toxic Vacuolation Present
[2021-11-04 01:00] LABS: Platelet Count 79 k/uL (150-450)
[2021-11-04] MEDS ORDERED: LACTULOSE 200 GM/300 ML (FROM 1/2 GAL JUG) RECTAL ONE (02:00)
[2021-11-04 05:11] LABS: Glucose,Whole Blood 69 mg/dL (70-110)
[2021-11-04] MEDS ORDERED: DEXTROSE 50% SYRINGE 50 ML IVP STA ×2 (05:15→07:21)
[2021-11-04 05:49] LABS: Glucose,Whole Blood 127 mg/dL (70-110)
[2021-11-04 07:18] LABS: Glucose,Whole Blood 88 mg/dL (70-110)
[2021-11-04 07:49] LABS: Glucose,Whole Blood 168 mg/dL (70-110)
[2021-11-04] MEDS ORDERED: PANTOPRAZOLE 40 MG/10 ML VIAL IVP ONE (08:05)
[2021-11-04] MEDS ORDERED: OCTREOTIDE 500 MCG in SODIUM CHLORIDE 0.9% 250 ML IV ONE (08:09)
[2021-11-04] MEDS ORDERED: OCTREOTIDE 100 MCG/ML INJ IVP STA (08:12)
[2021-11-04 08:24] LABS: Glucose,Whole Blood 141 mg/dL (70-110)
[2021-11-04] MEDS ORDERED: SODIUM CHLORIDE 0.9% 500 ML 500 ML IV STA (08:25)
[2021-11-04] MEDS ORDERED: ATROPINE SULFATE 0.1 MG/ML 10ML SYRINGE IV STA (08:29)
[2021-11-04] MEDS ORDERED: CALCIUM CHLORIDE 100 MG/ML 10 ML SYRINGE IVP STA (08:30)
[2021-11-04 09:03] LABS: Anisocytosis Moderate; HCT 20.6 % (39.0-53.0); Hypochromasia Marked; MCV 129.8 fL (80.0-100.0); Macrocytosis Marked; Mean Platelet Volume 10.3; Poikilocytosis Slight; RBC 1.59 m/uL (4.30-5.90); RDW 20.9 % (11.5-15.5)
[2021-11-04] MEDS ORDERED: ETOMIDATE 2 MG/ML 10 ML VIAL IVP STA (09:09)
[2021-11-04] MEDS ORDERED: NOREPINEPHRINE 8 MG in SODIUM CHLORIDE 0.9% 250 ML IV ONE (09:09)
[2021-11-04] MEDS ORDERED: ROCURONIUM 10 MG/ML (5 ML VIAL) IV STA (09:10)
[2021-11-04 09:12] LABS: HGB 5.6 gm/dL (13.0-17.5); MCH 34.9 pg (25.0-35.0); MCHC 27.3 g/dL (31.0-37.0)
[2021-11-04 09:13] LABS: Platelet Count 73 k/uL (150-450)
[2021-11-04 09:14] LABS: Albumin 1.8 g/dL (3.5-5.0); Calcium 9.7 mg/dL (8.4-10.2); Potassium 4.6 mmol/L (3.5-5.1); Total Protein 5.9 g/dL (6.3-8.2)
[2021-11-04 09:24] LABS: Total Bilirubin 21.6 mg/dL (0.2-1.3)
[2021-11-04] MEDS ORDERED: PIPERACILLIN-TAZOBACTAM 3.375 GM in SODIUM CHLORIDE 0.9% 100 ML IVPB STA (09:30)
[2021-11-04] MEDS ORDERED: fentaNYL (PF). 1,000 MCG in SODIUM CHLORIDE 0.9% 80 ML IV SCH (09:30)
[2021-11-04] MEDS ORDERED: KETAMINE 10 MG/ML 20 ML VIAL IV STA (09:40)
[2021-11-04 09:46] LABS: Band Neutrophils % 1 %; Eosinophils # (M) 0.13 k/uL (0-0.7); Monocytes # (M) 0.65 k/uL (0-1.0); Neutrophils % (M) 83 %; Nucleated Red Blood Cells 0 /100 WBC (0-0); Rouleaux Present; Total Cells Counted 100
[2021-11-04 09:47] LABS: Crenated RBC Present; Polychromasia Present; RBC Fragments Present
[2021-11-04 09:59] VITALS: RESP 15
[2021-11-04 10:16] VITALS: BP 95/40; PULSE 60; TEMP 90.3
--- NOTE | 2021-11-04 10:27 | XR ---
EXAMINATION TYPE: XR chest 1V portable DATE OF EXAM: 11/04/2021 COMPARISON: 11/03/2021 HISTORY: Difficulty breathing TECHNIQUE: Single frontal view of the chest is obtained. FINDINGS: Endotracheal tube is placed with its distal tip at the origin of the right mainstem bronchus. Endotra cheal tube should be pulled back approximately 3 cm. Perihilar and right lower lobe infiltrates noted . The heart appears be mildly enlarged. The osseous structures are intact. IMPRESSION: 1. Endotracheal tube should be pulled back 3 cm. Vertebral perihilar and right basilar infiltrates of uncertain etiology.
[2021-11-04] MEDS ORDERED: PANTOPRAZOLE 40 MG/10 ML VIAL IVP SCH (21:00)
== END 2021-11-04 10:30 | disposition other institution (70) ==
LOC: EC 21:29
DX: A41.9 Sepsis, unspecified organism (principal); K76.7 Hepatorenal syndrome; I95.9 Hypotension, unspecified; D64.9 Anemia, unspecified; K21.9 Gastro-esophageal reflux disease without esophagitis; F17.200 Nicotine dependence, unspecified, uncomplicated; F12.90 Cannabis use, unspecified, uncomplicated; Z20.822 Contact with and (suspected) exposure to COVID-19; Z87.19 Personal history of other diseases of the digestive system; Z79.899 Other long term (current) drug therapy
CPT/HCPCS: 36415; 86900; 86901; 80053 ×2; 82140; 84484; 85025 ×2; 85610; 85730; 86850; 86920; 87040; 80320; 87635; 71045 ×2; 70450; 99291; 31500; 36556; 96365; 96367; 96366; 96375 ×6; 96376; 96361 ×8; P9016; P9073; J2543; J2060; J2270; J2354 ×2; J0696; J0461; J3010; C9113